=== PATIENT | female | born 1965 | race American Indian/Alaskan Native ===

== ENCOUNTER 2017-02-04 12:15 | Emergency (ER) | payer SELFPAY ==
[2017-02-04 13:34] VITALS: BP 159/92
--- NOTE | 2017-02-05 15:19 | ED Elopement Review ---
ED Pt Elopement review - Call Back decision Pt Call Back Decision: No action required
== END 2017-02-04 14:20 | disposition left against medical advice (07) ==
LOC: ED 12:15
DX: M54.5 Low back pain (principal); R51 Headache; R60.9 Edema, unspecified; I10 Essential (primary) hypertension; Z85.07 Personal history of malignant neoplasm of pancreas; Z53.21 Procedure and treatment not carried out due to patient leaving prior to being seen by health care provider

== ENCOUNTER 2017-02-08 10:26 | Emergency (ER) | payer OTHER ==
[2017-02-08 10:40] VITALS: BP 157/87
--- NOTE | 2017-02-08 10:56 | Emergency Department Report ---
ED ENT HPI - General Chief complaint: Dental/Oral Stated complaint: TOOTHACHE,WEAKNESS Time Seen by Provider: 02/08/17 10:55 Source: patient Mode of arrival: Ambulatory Limitations: No Limitations - History of Present Illness MD complaint: tooth pain, ear pain -: Gradual - Related Data Previous Rx's Medication Instructions Recorded Last Taken Type Clindamycin [Clindamycin CAP] 300 mg PO Q6H #40 capsule 02/08/17 Unknown Rx Allergies Allergy/AdvReac Type Severity Reaction Status Date / Time No Known Allergies Allergy Verified 09/17/16 19:51 ED Dental HPI - General Chief complaint: Dental/Oral Stated complaint: TOOTHACHE,WEAKNESS Time Seen by Provider: 02/08/17 10:55 Source: patient Mode of arrival: Ambulatory Limitations: No Limitations - History of Present Illness MD complaint: tooth pain, ear pain -: Gradual, days(s) Severity: severe Quality: aching Worsens with: chewing, hot/cold liquids Context- Dental: history of dental caries Dental Associated Symptons: Yes: Headache, Earache - Related Data Previous Rx's Medication Instructions Recorded Last Taken Type Clindamycin [Clindamycin CAP] 300 mg PO Q6H #40 capsule 02/08/17 Unknown Rx Allergies Allergy/AdvReac Type Severity Reaction Status Date / Time No Known Allergies Allergy Verified 09/17/16 19:51 ED Review of Systems ROS: Stated complaint: TOOTHACHE,WEAKNESS Other details as noted in HPI Constitutional: denies: chills, fever Eyes: denies: eye pain, eye discharge, vision change ENT: denies: ear pain, throat pain Respiratory: denies: cough, shortness of breath, wheezing Cardiovascular: denies: chest pain, palpitations Endocrine: no symptoms reported Gastrointestinal: denies: abdominal pain, nausea, diarrhea Genitourinary: denies: urgency, dysuria, discharge Musculoskeletal: denies: back pain, joint swelling, arthralgia Skin: denies: rash, lesions Psychiatric: denies: anxiety, depression ED Past Medical Hx - Past Medical History Previous Medical History?: Yes Hx Hypertension: Yes Hx of Cancer: Yes - Surgical History Additional Surgical History: tubal ligation. Port to right chest - Social History Smoking Status: Never Smoker Substance Use Type: None - Medications Home Medications: Home Medications Medication Instructions Recorded Confirmed Last Taken Type Clindamycin [Clindamycin CAP] 300 mg PO Q6H #40 capsule 02/08/17 Unknown Rx ED Physical Exam - General Limitations: No Limitations General appearance: alert, in no apparent distress - Head Head exam: Present: atraumatic, normocephalic - Eye Eye exam: Present: PERRL, EOMI Pupils: Present: normal accommodation - ENT ENT exam: Present: mucous membranes moist, TM's normal bilaterally, normal external ear exam, other (lt upper molar tenderness) - Neck Neck exam: Present: normal inspection, full ROM. Absent: tenderness, meningismus, lymphadenopathy - Respiratory Respiratory exam: Absent: respiratory distress - Cardiovascular Cardiovascular Exam: Present: regular rate - Neurological Exam Neurological exam: Present: alert, oriented X3, CN II-XII intact, normal gait - Skin Skin exam: Present: warm, dry, intact ED Course Vital Signs 02/08/17 10:36 Temperature 98.8 F Pulse Rate 92 H Respiratory 20 Rate Blood Pressure 157/87 O2 Sat by Pulse 99 Oximetry - Reevaluation(s) Reevaluation #1: 02/08/17 11:05 On re-eval patient states she is currently being treated for stage IV pancreatic cancer. I will treat this dental infection aggressively. Critical care attestation.: If time is entered above; I have spent that time in minutes in the direct care of this critically ill patient, excluding procedure time. ED Disposition Clinical Impression: Dentalgia Disposition: DISCHARGED TO HOME OR SELFCARE Is pt being admited?: No Condition: Stable Instructions: Toothache (ED) Prescriptions: Clindamycin [Clindamycin CAP] 300 mg PO Q6H #40 capsule Referrals: PRIMARY CARE, [Primary Care Provider] - 3-5 Days
[2017-02-08] MEDS ORDERED: CLEOCIN IM ONE (11:02)
== END 2017-02-08 11:40 | disposition home or self-care (01) ==
LOC: ED 10:26
DX: K08.89 Other specified disorders of teeth and supporting structures (principal); I10 Essential (primary) hypertension; Z85.9 Personal history of malignant neoplasm, unspecified
CPT/HCPCS: 96372

== ENCOUNTER 2017-10-19 13:13 | Emergency (ER) | payer OTHER ==
[2017-10-19 16:42] LABS: Hematocrit 30.3 % (30.3-42.9); Hemoglobin 9.3 gm/dl (10.1-14.3); Mean Corpuscular HGB Conc 31 % (30-34); Mean Corpuscular Volume 81 fl (79-97); Platelet Count 368 K/mm3 (140-440); Red Blood Count 3.72 M/mm3 (3.65-5.03); Red Cell Distribution Width 19.9 % (13.2-15.2)
[2017-10-19 16:44] LABS: White Blood Count 82.8 K/mm3 (4.5-11.0)
[2017-10-19 16:45] LABS: Mean Corpuscular Hemoglobin 25 pg (28-32)
[2017-10-19 16:52] LABS: Calcium 8.3 mg/dL (8.4-10.2); Chloride 76.2 mmol/L (98-107); Potassium 4.5 mmol/L (3.6-5.0)
[2017-10-19] MEDS ORDERED: NACL 0.9% 250ML 250 ML IV ONE (17:06)
--- NOTE | 2017-10-19 17:26 | Emergency Department Report ---
- General Chief complaint: Weakness Stated complaint: ALTERED MENTAL STATUS Time Seen by Provider: 10/19/17 16:50 Source: patient, family, EMS Mode of arrival: Stretcher Limitations: Altered Mental Status - History of Present Illness Initial comments: Patient is a hospice patient who has metastatic pancreatic cancer with original Dx given about 2 years ago. Recently has been unable to keep anything down and has been hard to urinate. She has swelling in her stomach and in her legs. Her eyes have recently become more jaundice. MD Complaint: generalized weakness -: Gradual, week(s) (2) Location: generalized Severity: moderate, severe Severity scale (0 -10): 9 Quality: tingling, numbness, sharp Consistency: constant, intermittent Improves with: none Worsens with: movement Associated Symptoms: denies other symptoms - Related Data Previous Rx's Medication Instructions Recorded Last Taken Type Clindamycin [Clindamycin CAP] 300 mg PO Q6H #40 capsule 02/08/17 Unknown Rx Amoxicillin [Amoxicillin TAB] 875 mg PO BID #20 tablet 10/20/17 Unknown Rx Allergies Allergy/AdvReac Type Severity Reaction Status Date / Time No Known Allergies Allergy Verified 09/17/16 19:51 ED Review of Systems ROS: Stated complaint: ALTERED MENTAL STATUS Other details as noted in HPI Constitutional: weakness. denies: chills, fever Eyes: denies: eye pain, eye discharge, vision change ENT: denies: ear pain, throat pain Respiratory: denies: cough, shortness of breath, wheezing Cardiovascular: denies: chest pain, palpitations Endocrine: no symptoms reported Gastrointestinal: abdominal pain. denies: nausea, diarrhea Genitourinary: denies: urgency, dysuria, discharge Musculoskeletal: denies: back pain, joint swelling, arthralgia Skin: denies: rash, lesions Neurological: denies: headache, weakness, paresthesias Psychiatric: denies: anxiety, depression Hematological/Lymphatic: denies: easy bleeding, easy bruising ED Past Medical Hx - Past Medical History Hx Hypertension: Yes Hx of Cancer: Yes (Pancreas) - Surgical History Additional Surgical History: tubal ligation. Port to right chest - Social History Smoking Status: Never Smoker Substance Use Type: None - Medications Home Medications: Home Medications Medication Instructions Recorded Confirmed Last Taken Type Clindamycin [Clindamycin CAP] 300 mg PO Q6H #40 capsule 02/08/17 Unknown Rx Amoxicillin [Amoxicillin TAB] 875 mg PO BID #20 tablet 10/20/17 Unknown Rx ED Physical Exam - General Limitations: Altered Mental Status General appearance: alert, lethargic, cachectic - Head Head exam: Present: atraumatic, normocephalic - Eye Eye exam: Present: normal appearance, scleral icterus - ENT ENT exam: Present: mucous membranes moist - Neck Neck exam: Present: normal inspection - Respiratory Respiratory exam: Present: normal lung sounds bilaterally. Absent: respiratory distress - Cardiovascular Cardiovascular Exam: Present: regular rate, normal rhythm. Absent: systolic murmur, diastolic murmur, rubs, gallop - GI/Abdominal GI/Abdominal exam: Present: soft, distended, tenderness (Patient with fluid wave and distended. ), normal bowel sounds - Extremities Exam Extremities exam: Present: normal inspection - Back Exam Back exam: Present: normal inspection - Neurological Exam Neurological exam: Present: alert, oriented X3 - Psychiatric Psychiatric exam: Present: normal affect, normal mood - Skin Skin exam: Present: warm, dry, intact, normal color. Absent: rash ED Course Vital Signs 10/19/17 10/19/17 10/19/17 15:25 16:59 17:00 Temperature 98.2 F Pulse Rate 105 H 102 H Respiratory 17 24 Rate Blood Pressure 125/83 132/79 O2 Sat by Pulse 95 100 100 Oximetry 10/19/17 10/19/17 10/19/17 17:16 17:30 17:37 Temperature Pulse Rate 103 H 104 H Respiratory 25 H 24 24 Rate Blood Pressure 132/79 132/79 O2 Sat by Pulse 100 100 100 Oximetry 10/19/17 10/19/17 10/19/17 17:46 18:00 18:16 Temperature Pulse Rate 102 H 106 H 106 H Respiratory 20 22 25 H Rate Blood Pressure 132/79 125/83 125/83 O2 Sat by Pulse 100 97 100 Oximetry 10/19/17 10/19/17 10/19/17 18:30 18:46 19:00 Temperature Pulse Rate 106 H 102 H 102 H Respiratory 23 22 22 Rate Blood Pressure 125/83 125/83 125/83 O2 Sat by Pulse 100 100 100 Oximetry 10/19/17 10/19/17 10/19/17 19:16 19:30 19:46 Temperature Pulse Rate 103 H 105 H 106 H Respiratory 19 25 H 26 H Rate Blood Pressure 125/83 125/83 125/83 O2 Sat by Pulse 100 100 100 Oximetry 10/19/17 10/19/17 10/19/17 20:00 20:06 20:10 Temperature Pulse Rate 103 H 104 H 105 H Respiratory 26 H 26 H 27 H Rate Blood Pressure 138/85 138/85 138/85 O2 Sat by Pulse 100 99 Oximetry 10/19/17 10/19/17 10/19/17 20:16 20:20 20:26 Temperature Pulse Rate 103 H 102 H 103 H Respiratory 25 H 25 H 24 Rate Blood Pressure 138/85 138/85 138/85 O2 Sat by Pulse 100 100 100 Oximetry 10/19/17 10/19/17 10/19/17 20:30 20:36 20:40 Temperature Pulse Rate 103 H 105 H 103 H Respiratory 25 H 26 H 24 Rate Blood Pressure 138/85 142/87 142/87 O2 Sat by Pulse 100 100 100 Oximetry 10/19/17 10/19/17 10/19/17 20:45 20:50 20:56 Temperature Pulse Rate 102 H 104 H 103 H Respiratory 20 26 H 21 Rate Blood Pressure 127/80 127/80 127/80 O2 Sat by Pulse 100 100 Oximetry 10/19/17 10/19/17 10/19/17 21:00 21:06 21:10 Temperature Pulse Rate 102 H 104 H 103 H Respiratory 21 19 23 Rate Blood Pressure 124/78 124/78 124/78 O2 Sat by Pulse 99 100 Oximetry 10/19/17 10/19/17 10/19/17 21:15 21:20 21:26 Temperature Pulse Rate 108 H 105 H 105 H Respiratory 29 H 26 H 21 Rate Blood Pressure 133/81 124/78 124/78 O2 Sat by Pulse 100 100 100 Oximetry ED Medical Decision Making - Lab Data Result diagrams: 10/19/17 16:07 10/19/17 16:07 Patient with very high WBC and with potential UTI. She now appears to have renal failure. - EKG Data EKG shows normal: sinus rhythm, ST-T waves (minimal ST elevation inferior leads but denies chest pain) Rate: tachycardia - EKG Data Interpretation: nonspecific ST-T wave danika - Medical Decision Making Patient is on hospice and is not able to take PO well. It appears she has worsened to the point she has hypoalbumenia with cirrhosis from metastaic pancreatic cancer. She is also anuric with acute renal failure. She has a UTI. Family is okay with attempting to hydrate her but understands that it may not stay intravascular and cause additional edema. We placed a mercado as she could not urinate on her own and got 30 mL out. Will leave mercado and send her home for hospice care. We will treat with amoxil for UTI. Family understands her condition has progressed and will continue hospice comfort care. Critical care attestation.: If time is entered above; I have spent that time in minutes in the direct care of this critically ill patient, excluding procedure time. ED Disposition Clinical Impression: Pancreatic cancer metastasized to liver, Dehydration, moderate Abdominal pain Qualifiers: Abdominal location: generalized Qualified Code(s): R10.84 - Generalized abdominal pain Cirrhosis of liver with ascites Qualifiers: Hepatic cirrhosis type: unspecified hepatic cirrhosis Qualified Code(s): K74.60 - Unspecified cirrhosis of liver Renal failure Qualifiers: Renal failure chronicity: acute Acute renal failure type: unspecified Qualified Code(s): N17.9 - Acute kidney failure, unspecified UTI (urinary tract infection) Qualifiers: Urinary tract infection type: acute cystitis Hematuria presence: with hematuria Qualified Code(s): N30.01 - Acute cystitis with hematuria Disposition: TO HOME OR SELFCARE Is pt being admited?: No Does the pt Need Aspirin: No Condition: Stable Instructions: Ascites (ED), Urinary Tract Infection in Women (ED), End-Stage Kidney Disease (ED) Prescriptions: Amoxicillin [Amoxicillin TAB] 875 mg PO BID #20 tablet Referrals: Hospice, Care [Other] - 3-5 Days Time of Disposition: 00:23
[2017-10-19 17:39] LABS: Basophils % (Manual) 0 % (0.0-1.8); Blastocytes % (Manual) 0 %; Eosinophils % (Manual) 0 % (0.0-4.3); Total Cells Counted Percent 4.5
[2017-10-19 17:40] LABS: Hypochromasia 2+
[2017-10-19 17:41] LABS: Anisocytosis 1+; Poikilocytosis 1+; Target Cells 1+
[2017-10-19 17:42] LABS: Dohle Bodies 1+
[2017-10-19 17:43] LABS: Diff Status Complete; Platelet Estimate Consistent w Auto; Polychromasia 1+; Stomatocytes 1+
[2017-10-19] MEDS ORDERED: MORPHINE IV ONE (22:16)
[2017-10-19 23:47] LABS: Bacteria,Urine 1+ /HPF (Negative); Bilirubin,Urine NEG (Negative); Blood,Urine MOD (Negative); Ketones,Urine TR mg/dL (Negative); Leukocyte Esterase,Urine NEG (Negative); Nitrite,Urine NEG (Negative)
[2017-10-20 02:07] VITALS: BP 131/79
== END 2017-10-20 02:08 | disposition home or self-care (01) ==
LOC: ED 13:13
DX: C78.7 Secondary malignant neoplasm of liver and intrahepatic bile duct (principal); N17.9 Acute kidney failure, unspecified; K74.60 Unspecified cirrhosis of liver; C25.7 Malignant neoplasm of other parts of pancreas; R10.84 Generalized abdominal pain; N30.01 Acute cystitis with hematuria; E86.0 Dehydration
CPT/HCPCS: 36415; 51702; 80048; 80061; 81001; 83690; 84484; 85007; 85025; 93005; 93010; 96361; 96374; 99284; J2270; J7050